=== PATIENT | female | born 1940 | race Caucasian/White ===

== ENCOUNTER 2022-05-17 12:15 | Emergency (ER) | payer OTHER, MEDICAID ==
[~2022-05-17] VITALS: Ht 160 cm; Wt 61.2 kg
[2022-05-17 12:27] VITALS: BP_SYST 100
[2022-05-17 12:53] LABS: BASOPHILS # (AUTO) 0.1 K/uL (0.0-0.2); BASOPHILS % (AUTO) 1.3 % (0.0-2.0); EOSINOPHILS # (AUTO) 0.1 K/uL (0.0-0.4); EOSINOPHILS % (AUTO) 2.1 % (0.0-4.0); HEMATOCRIT 33.9 % (36-48); HEMOGLOBIN 11.8 g/dL (12.0-16.0); LYMPHOCYTES # (AUTO) 1.5 K/uL (1.0-5.5); LYMPHOCYTES % (AUTO) 25.3 % (20.5-51.5); MEAN CORPUSCULAR HEMOGLOBIN 28 pg (27-31); MEAN CORPUSCULAR HGB CONC 35 % (32-36); MEAN CORPUSCULAR VOLUME 82 fL (79.0-98.0); MONOCYTES # (AUTO) 0.6 K/uL (0.0-1.0); MONOCYTES % (AUTO) 10.9 % (1.7-9.3); NEUTROPHILS # (AUTO) 3.5 K/uL (1.8-7.7); NEUTROPHILS % (AUTO) 60.4 % (40.0-70.0); PLATELET COUNT (AUTO) 306 K/uL (130-430); RED BLOOD CELL COUNT(AUTO) 4.15 MIL/uL (4.2-6.2); RED CELL DISTRIBUTION WIDTH 13.6 % (9.0-15.0); WHITE BLOOD COUNT (AUTO) 5.8 K/uL (4.8-10.8)
[2022-05-17 13:03] LABS: ANION GAP 6 (5-15); CALCIUM 8.9 mg/dL (8.4-11.0); CHLORIDE 94 mmol/L (98-107); CREATININE 0.34 mg/dL (0.55-1.30); GLUCOSE 141 mg/dL (70-99); UREA NITROGEN, BLOOD 11 mg/dL (8-21)
[2022-05-17 13:08] LABS: ALANINE AMINOTRANSFERASE 12 U/L (12-78); ASPARTATE AMINOTRANSFERASE 12 U/L (10-37); TOTAL BILIRUBIN 0.2 mg/dL (0.0-1.0)
[2022-05-17] MEDS ORDERED: NACL 0.9% 1,000 ML IV ONE (14:30)
[2022-05-17 14:38] LABS: BILIRUBIN,URINE NEGATIVE (NEGATIVE); BLOOD, URINE NEGATIVE (NEGATIVE); CLARITY/URINE CLEAR (CLEAR); COLOR,URINE YELLOW (YELLOW); GLUCOSE,URINE NEGATIVE (NEGATIVE); KETONES,URINE NEGATIVE (NEGATIVE); LEUKOCYTE ESTERASE ,URINE NEGATIVE (NEGATIVE); NITRITE, URINE NEGATIVE (NEGATIVE); PH,URINE 7.5 (5.0-8.0); PROTEIN URINE NEGATIVE (NEGATIVE); UROBILINOGEN,URINE 0.2 (0.2-1.0)
[2022-05-17 23:20] VITALS: BP_SYST 121
== END 2022-05-17 23:20 | disposition home or self-care (01) ==
LOC: SED 12:15
DX: E86.0 Dehydration (principal); E87.1 Hypo-osmolality and hyponatremia; R53.1 Weakness; R10.84 Generalized abdominal pain; Z79.899 Other long term (current) drug therapy
CPT/HCPCS: 99285; 96360; 70450; 71045; 80053; 83880; 85025; 84484; 36415; 93005; 76376; 81003; J7030